=== PATIENT | male | born 1975 | race Hispanic/Latino ===

== ENCOUNTER → 2017-11-19 | Day surgery (SDC) | payer SELFPAY ==
[2017-11-18 14:26] LABS: BASOPHILS # (AUTO) 0.1 (0.0-0.1); BASOPHILS % 0.8 % (0.0-1.0); EOSINOPHILS # (AUTO) 0.2 (0.0-0.4); HEMATOCRIT 42.4 % (38.2-49.6); HEMOGLOBIN 14.9 g/dL (14.0-18.0); LYMPHOCYTES # (AUTO) 2.4 (1.0-3.2); LYMPHOCYTES % 31.5 % (18.0-39.1); MEAN CORPUSCULAR HEMOGLOBIN 29.7 pg (28-32); MEAN CORPUSCULAR HGB CONC 35.1 g/dL (31-35); MEAN CORPUSCULAR VOLUME 84.5 fL (81-99); MONOCYTES # (AUTO) 0.7 (0.2-0.8); MONOCYTES % 9.2 % (4.4-11.3); NEUTROPHILS # (AUTO) 4.3 (2.1-6.9); NEUTROPHILS % 55.4 % (38.7-80.0); PLATELET COUNT 231 x10e3/uL (140-360); RED BLOOD COUNT 5.02 x10e6/uL (4.3-5.7); RED CELL DISTRIBUTION WIDTH 11.9 % (11.7-14.4)
[~2017-11-19] MED LIST: ACETAMINOPHEN 1000 MG/100 ML IV ONE; BACTRIM DS TAB1 EACH PO; BUPIVACAINE 0.25%/EPI 30ML SDV INJ ONE; FENTANYL CITRATE/PF 100MCG/2 ML INJ ONE; LIDOCAINE 1% W/EPINEPHRINE 20 ML VIAL ONE; LIDOCAINE HCL 1% LOCAL INJ 20 ML VIAL ONE; LIDOCAINE HCL 2% LOCAL INJ 5 ML SDV VIAL INJ ONE; MIDAZOLAM HCL 2 MG/2 ML VIAL ONE; NEOSTIGMINE 1 MG/ML 10ML VIAL ONE; PROPOFOL IV EMULSION 10 MG/ML 20 ML VIAL ONE; SEVOFLURANE INHAL SOLN 250 ML PEN BTL ONE
--- NOTE | 2017-11-19 12:43 | Operative Report ---
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 OPERATION PERFORMED: Excision and fulguration of multiple basal cell cancers of the scalp. ANESTHESIA: General. COMPLICATIONS: None. ESTIMATED BLOOD LOSS: Minimal. DESCRIPTION OF PROCEDURE: With the patient lying in bed in supine position, under good general anesthesia, the scalp was prepped with Hibiclens solution and draped in the usual manner. There were 2 large lesions in the 10 o'clock position and another one at the 7 o'clock position, and both of these areas were sharply excised all the way down to the galea and totally and completely removed. Hemostasis was ascertained. Flaps were then developed on both sides. The subcutaneous tissue was approximated with 3-0 Vicryl, and the skin was closed with interrupted sutures of 2-0 nylon. There was another number of smaller lesions throughout the entirety of the scalp probably numbering 10 that were then fulgurated completely. After this was done, the wounds were then dressed with Neosporin solution. Patient tolerated the procedure well and returned to the recovery room in stable condition. Job#: [id number]
== END | disposition home or self-care (01) ==
LOC: OR 07:48
PROVIDERS: ATTEND Surgery
DX: C44.41 Basal cell carcinoma of skin of scalp and neck (principal); Z01.812 Encounter for preprocedural laboratory examination
CPT/HCPCS: 11623; 11624; 12032; 17270; 36415; 85025; 88305; 93005; J2001; J2250; J2710; 88304